=== PATIENT | female | born 1985 | race Caucasian/White ===

== ENCOUNTER 2019-10-28 07:21 | Inpatient (IN) ==
[2019-10-28] MEDS ORDERED: LACTATED RINGER'S 1,000 ML IV PRN (07:31)
[2019-10-28] MEDS ORDERED: OXYTOCIN 30 UNITS/500 ML BAG IV PRN ×2 (07:31→08:58)
[2019-10-28 07:53] LABS: Hematocrit (blood only) 33.6 % (37-47); Hemoglobin 11.9 g/dL (12.0-16.0); Mean Corpuscular Hemoglobin 32.7 pg (25-34); Mean Corpuscular Volume 92.3 fL (80-100); Mean Platelet Volume 10.4 fL (7.4-10.4); Platelet Count 162 K/uL (130-400); RDW Coefficient of Variation 13.8 % (11.5-14.5); RDW Standard Deviation 45.8 fL (36.4-46.3); Red Blood Count 3.64 M/uL (4.2-5.4); White Blood Count 11.94 K/uL (4.8-10.8)
[2019-10-28 07:57] LABS: Mean Corpuscular Hgb Conc 35.4 g/dL (32-36)
[2019-10-28] MEDS ORDERED: miSOPROStoL 200 MCG TAB ONE ×2 (08:42→08:48)
[2019-10-28] MEDS ORDERED: METHYLERGONOVINE MALEATE 0.2 MG/ML AMP ONE (08:42)
[2019-10-28] MEDS ORDERED: IBUPROFEN 600 MG TAB PO PRN (08:58)
[2019-10-28] MEDS ORDERED: HYDROCORTISONE ACETATE 25 MG SUPP PR PRN (08:58)
[2019-10-28] MEDS ORDERED: bisacodyL 10 MG SUPP PR PRN (08:58)
[2019-10-28] MEDS ORDERED: DIPHTHERIA/TETANUS/PERTUSSIS 0.5 ML SYR/VIAL IM ONE (08:58)
[2019-10-28] MEDS ORDERED: SUPERCREAM 0.870% 15 GM JAR EXT PRN (08:58)
[2019-10-28] MEDS ORDERED: miSOPROStoL 200 MCG TAB PR ONE (08:58)
[2019-10-28] MEDS ORDERED: ACETAMINOPHEN 325 MG TAB PO PRN (08:58)
[2019-10-28] MEDS ORDERED: BENZOCAINE 20% AER SPR 82.5 GM CAN EXT PRN (08:58)
[2019-10-28] MEDS ORDERED: METHYLERGONOVINE MALEATE 0.2 MG/ML AMP IM ONE (08:58)
--- NOTE | 2019-10-28 10:17 | Delivery Summary ---
DATE OF OPERATION: 10/28/2019 The patient delivered a live infant male in right occiput anterior presentation. There was loose nuchal cord which was easily reduced. was placed on mother's abdomen. Delayed cord clamp was performed after 1 minute. Cord blood was obtained. Infant's weight is pending. Apgars 8 and 10. Placenta spontaneously delivered. Inspection of the placenta shows a normal looking placenta with 3-vessel cord. Inspection of the perineum shows a second-degree midline laceration which was repaired with Vicryl in layers. Rectal exam post repair showed good sphincter tone. Estimated blood loss was 450 mL. The patient and mother are doing well in recovery All instruments were removed from the vagina and accounted for x2 including sponges, needles and retractors. I attest to the content of the Intraoperative Record and any orders documented therein. Any exception s are noted below.
[2019-10-28] MEDS: DOCUSATE SODIUM 100 MG CAP PO SCH (20:52)
[2019-10-29 06:21] LABS: Hematocrit (blood only) 32.9 % (37-47); Hemoglobin 11.5 g/dL (12.0-16.0); Mean Corpuscular Hemoglobin 32.7 pg (25-34); Mean Corpuscular Volume 93.5 fL (80-100); Mean Platelet Volume 10.5 fL (7.4-10.4); Platelet Count 152 K/uL (130-400); RDW Coefficient of Variation 13.9 % (11.5-14.5); RDW Standard Deviation 46.7 fL (36.4-46.3); Red Blood Count 3.52 M/uL (4.2-5.4); White Blood Count 12.15 K/uL (4.8-10.8)
[2019-10-29] MEDS: DOCUSATE SODIUM 100 MG CAP PO SCH (07:37)
[2019-10-29] MEDS ORDERED: PRENATAL VITAMIN 1 TAB PO SCH (08:00)
[2019-10-29] MEDS ORDERED: FERROUS SULFATE 325 MG TAB PO SCH (08:00)
--- NOTE | 2019-10-29 09:26 | Obstetrical Progress Note ---
Date of Service October 29, 2019 Assessment & Plan (1) Normal delivery at term: Admission and Anticipated Discharge Date Admission Date: October 28, 2019 Subjective Review of Systems Review of Systems: All systems reviewed & are unremarkable except as noted in HPI & below Physical Exam Constitutional: WD/WN, vitals as above well developed and well nourished Eyes: PERRL, conjunctivae normal, anicteric sclerae Neck: trachea midline, no thyromegaly Respiratory: normal respiratory effort, lungs clear to auscultation Auscultation: no crackles, no rales and no wheezes Cardiovascular: RRR, no murmur, no edema Gastrointestinal (Abdomen): normal bowel sounds, soft, nontender, no hepatosplenomegaly Uterus is below umbilicus Musculoskeletal: no cyanosis or clubbing, extremities motor strength 5/5 Skin: no rashes, warm and dry Neurologic: patellar DTR's 2+ bilat, sensation intact Psychiatric: A+Ox3, euthymic affect Genitourinary: normal external appearance Results & Data ([facility]) Vital Signs (Past 12 Hours) Vital Signs Temp Pulse Resp BP Pulse Ox 10/29/19 07:58 36.7 C 54 L 18 109/72 97 10/29/19 03:50 37.1 C 51 L 18 108/68 96 10/28/19 23:05 37.3 C 67 18 99/67 L 97
[2019-10-29] MEDS ORDERED: bisacodyL 5 MG TABEC PO SCH (20:00)
== END 2019-10-29 14:05 | disposition home or self-care (01) | DRG 807 ==
LOC: 4S1 07:21 → 4S2 11:34